=== PATIENT | female | born 1965 | race African-American/Black ===

== ENCOUNTER → 2016-12-07 | Outpatient (CLI) | payer BC ==
[~2016-12-07] MED LIST: FLAGYL500 MG PO; IBUPROFEN 600600 M1 PO; MACROBID 100 M100 M1 PO; NORCO 5-325 TA1 EACH PO; PHENERGAN 25 MG25 M1 PO; RANITIDINE HCL300 M1 PO; ZOFRAN ODT4 MG PO
== END ==
LOC: RAD 10:52
DX: Z12.31 Encounter for screening mammogram for malignant neoplasm of breast (principal)

== ENCOUNTER → 2018-02-01 | Outpatient (CLI) | payer BC | LOC: RAD 01:32 | DX: Z12.31 Encounter for screening mammogram for malignant neoplasm of breast (principal) ==